=== PATIENT | male | born 1980 | race Caucasian/White ===

== ENCOUNTER 2018-05-25 02:07 | Inpatient (IN) | payer SELFPAY ==
[2018-05-25] VITALS (20 sets, daily range): BP systolic 91–132; BP diastolic 54–100
[~2018-05-25] VITALS: Ht 175.3 cm; Wt 118.2 kg
[~2018-05-25 02:07] MED LIST: AMLODIPINE BESY10 MG PO; ASPIR 8181 MG PO; CEFTRIAXON2 GM/50 ML IVP; CIPRO500 MG PO; DOXYCYCLINE HY100 M2 IV; DOXYCYCLINE HY100 MG PO; FUROSEMIDE40 MG PO; LASIX20 MG PO; LISINOPRIL10 MG PO; LISINOPRIL20 MG PO
[2018-05-25 03:12] LABS: AMPHETAMINES SCREEN,URINE NEGATIVE (NEGATIVE); BENZODIAZEPINES SCREEN,URINE NEGATIVE (NEGATIVE); PHENCYCLIDINE SCREEN,URINE NEGATIVE (NEGATIVE)
--- NOTE | 2018-05-25 03:13 | Diagnostic Imaging Report ---
CHEST 2 VIEWS, Technique: CHEST 2 VIEWS Comparison: None Clinical history: Cough DISCUSSION: Cardiomediastinal silhouette within normal limits status post median sternotomy. No consolidation or edema. No effusion or pneumothorax. IMPRESSION: No acute abnormality Signed by: Dr Beata Khan MD on 05/25/2018 3:10 AM
[2018-05-25 03:25] LABS: ALANINE AMINOTRANSFERASE 111 IU/L (0-55); ALBUMIN 4.6 g/dL (3.5-5.0); ALBUMIN/GLOBULIN RATIO 1.2 (0.8-2.0); ALKALINE PHOSPHATASE 153 IU/L (40-150); ANION GAP 24.8 mmol/L (8-16); BLOOD UREA NITROGEN 20 mg/dL (7-26); BUN/CREATININE RATIO 10 (6-25); CALCIUM 10.6 mg/dL (8.4-10.2); CARBON DIOXIDE 20 mmol/L (22-29); CHLORIDE 88 mmol/L (98-107); CREATININE, SERUM 1.97 mg/dL (0.72-1.25); EST GLOMERULAR FILTRATION RATE 39 ML/MIN (60-); POTASSIUM 5.8 mmol/L (3.5-5.1); SODIUM 127 mmol/L (136-145)
[2018-05-25 03:25] LABS: CLARITY,URINE CLEAR (CLEAR); COLOR,URINE YELLOW (YELLOW); KETONES,URINE TRACE (NEGATIVE); LEUKOCYTE ESTERASE ,URINE NEGATIVE (NEGATIVE); NITRITE,URINE NEGATIVE (NEGATIVE); PROTEIN,URINE DIPSTICK NEGATIVE (NEGATIVE)
[2018-05-25 03:26] LABS: BILIRUBIN,URINE NEGATIVE (NEGATIVE); URINE UROBILINOGEN 0.2 mg/dL (0.2 - 1)
[2018-05-25 03:31] LABS: GLUCOSE > 800 mg/dL (74-118)
[2018-05-25 03:42] LABS: HEMATOCRIT 48.4 % (38.2-49.6); HEMOGLOBIN 17.9 g/dL (14.0-18.0); MEAN CORPUSCULAR HEMOGLOBIN 32.3 pg (28-32); MEAN CORPUSCULAR VOLUME 87.4 fL (81-99); PLATELET COUNT 171 x10e3/uL (140-360); RED BLOOD COUNT 5.54 x10e6/uL (4.3-5.7); RED CELL DISTRIBUTION WIDTH 38.3 % (11.7-14.4)
[2018-05-25 03:43] LABS: BASOPHILS % 0.4 % (0.0-1.0); EOSINOPHILS % 0.3 % (0.0-6.0); LYMPHOCYTES % 12.2 % (18.0-39.1); MONOCYTES % 7.7 % (4.4-11.3); NEUTROPHILS # (AUTO) 8.7 (2.1-6.9); NEUTROPHILS % 79.1 % (38.7-80.0)
[2018-05-25 03:44] LABS: LYMPHOCYTES # (AUTO) 1.3 (1.0-3.2); MONOCYTES # (AUTO) 0.9 (0.2-0.8)
[2018-05-25] MEDS ORDERED: DEXTROSE 5%/0.45% SOD CHL 1,000 ML IV SCH (03:46)
[2018-05-25] MEDS ORDERED: METOPROLOL SUCC25 MG PO (03:53)
[2018-05-25] MEDS ORDERED: VASOTEC10 MG PO (03:53)
[2018-05-25] MEDS ORDERED: ONDANSETRON HCL INJ 2MG/ML 2ML 2 MG/ML VIAL IV PRN (04:00)
[2018-05-25] MEDS ORDERED: MAGNESIUM SULF 1GRAM/DEXTROSE 100 ML IV PRN (04:00)
[2018-05-25] MEDS ORDERED: POTASSIUM CHLORIDE 20MEQ/100ML 200 ML IV PRN (04:00)
[2018-05-25] MEDS ORDERED: INSULIN REGULAR, HUMAN 3ML VL 1 UNIT in SODIUM CHLORIDE 0.9% 100 ML IV SCH ×2 (04:00)
[2018-05-25] MEDS ORDERED: INSULIN DETEMIR 100 UNIT/ML PEN SQ PRN (04:00)
--- OUTSIDE RECORDS SUMMARY | 2018-05-25 04:00 | XMS REPORT ---
Author Author [facility] Address Unknown Phone Unavailable Care Team Providers Care Civil Designer Name Role Phone Herminio PEDERSON Unavailable Unavailable Problems This patient has no known problems. Allergies, Adverse Reactions, Alerts This patient has no known allergies or adverse reactions. Medications This patient has no known medications. Results Test Description Test Time Test Comments Text Results Atomic Results Result Comments CHEST 2 VIEWS 2018-05-25 03:09:00 [place] [id number] Patient Name: JASE RAMIRES III MR #: [id number] : 1980 Age/Sex: 37/M Req #: [id number] Adm Physician: Ordered by: RAINE PEDERSON MD Report #: [id number] Location: ER Room/Bed: Procedure: [id number] DX/CHEST 2 VIEWS Exam Date: 05/25/18 Exam Time: 0300 REPORT STATUS: Signed CHEST 2 VIEWS, Technique: CHEST 2 VIEWS Comparison: None Clinical history: Cough DISCUSSION: Cardiomediastinal silhouette within normal limits status post median sternotomy. No consolidation or edema. No effusion or pneumothorax. IMPRESSION: No acute abnormality Signed by: Dr Kyle Khan MD on 05/25/2018 3:10 AM Dictated By: KYLE KHAN MD 9 Transcribed By: KEIKO on 05/25/18309 COPY TO: RAINE PEDERSON MD
[2018-05-25 04:02] LABS: BACTERIA,URINE RARE /HPF; EPITHELIAL CELLS,URINE RARE /LPF; RBC,URINE 0-5 /HPF (0-5); WBC,URINE (MAN) 0-5 /HPF (0-5)
[2018-05-25 04:12] LABS: CREATINE KINASE 190 IU/L (30-200)
[2018-05-25] MEDS ORDERED: INSULIN REGULAR, HUMAN 100 UNIT/1 ML 3ML VIAL ONE (04:13)
[2018-05-25] MEDS ORDERED: SODIUM CHLORIDE 0.9% 100 ML ONE (04:13)
[2018-05-25] MEDS: SODIUM CHLORIDE 0.9% 1000ML 1,000 ML IV SCH ×3 (04:18→13:27)
[2018-05-25 08:19] LABS: ANION GAP 17.1 mmol/L (8-16); CREATININE, SERUM 1.47 mg/dL (0.72-1.25); MAGNESIUM 2.5 MG/DL (1.3-2.1); POTASSIUM 4.1 mmol/L (3.5-5.1)
[2018-05-25 12:43] LABS: BLOOD UREA NITROGEN 16 mg/dL (7-26); BUN/CREATININE RATIO 13 (6-25); CALCIUM 9.1 mg/dL (8.4-10.2); CARBON DIOXIDE 21 mmol/L (22-29); CHLORIDE 101 mmol/L (98-107); EST GLOMERULAR FILTRATION RATE > 60 ML/MIN (60-); GLUCOSE 351 mg/dL (74-118); MAGNESIUM 2.1 MG/DL (1.3-2.1); SODIUM 133 mmol/L (136-145)
[2018-05-25] MEDS: FUROSEMIDE 40 MG TAB PO SCH (13:27)
[2018-05-25] MEDS ORDERED: INSULIN REGULAR, HUMAN 3ML VL 300 UNIT in SODIUM CHLORIDE 0.45% 100 ML 300 ML IV SCH ×4 (13:39)
[2018-05-25] MEDS ORDERED: DEXTROSE 50% SYRINGE 50 ML IV PRN ×2 (13:45)
[2018-05-25] MEDS ORDERED: INSULIN REGULAR, HUMAN 3ML VL 100 UNIT in SODIUM CHLORIDE 0.45% 100 ML 100 ML IV SCH ×2 (14:00)
[2018-05-25 14:19] LABS: FREE T4 (FREE THYROXINE) 1.4 ng/dL (0.9-1.8); THYROID STIMULATING HORMONE 1.329 uIU/mL (0.350-4.940)
[2018-05-25] MEDS: DEXTROSE 5%/0.45% SOD CHL 1,000 ML IV SCH ×2 (15:30→21:37)
--- NOTE | 2018-05-25 16:06 | Consultation ---
DATE OF CONSULTATION: May 25, 2018 ENDOCRINE CONSULTATION This is a patient of Dr. Austin. Thank you very much for referring this patient. This is a 37-year-old gentleman who is referred to me for evaluation of new-onset diabetes and diabetic ketoacidosis. According to the patient, he was doing relatively alright until a couple of weeks back when he started having severe polyuria, polydipsia, dryness of mouth and started having some nausea and vomiting. He has lost a significant amount of weight. He reported to the emergency room, and his blood sugar was found to be more than 800. His anion gap was 24.8. Potassium was 5.8. BUN and creatinine were elevated as well. Patient has a significant history of aortic valve replacement in the past. He also has history of congestive cardiac failure. Patient does have strong family history of diabetes mellitus. PHYSICAL EXAMINATION GENERAL: The patient is alert, awake, a little bit apprehensive. He is moderately overweight. VITALS: His heart rate is around 79. Blood pressure is 123/87. CHEST: Bilateral vesicular breathing. He has mild bronchospasm. CARDIAC: Has 1st and 2nd heart sounds. He has a long systolic murmur and a click. He has tenderness in the epigastric area and mild evidence of sensory neuropathy. CLINICAL IMPRESSION 1. Diabetes mellitus, type 2. 2. Diabetic ketoacidosis, new onset. 3. History of aortic valve replacement. 4. Congestive cardiac failure. PLAN: The plan at this time is to start him on IV fluids and insulin drip. Monitor his blood sugars closely. Will also do a hemoglobin A1c and thyroid function test. Thanks again for referring this patient. I will be following this patient with you. Job#: [id number] HERI PARNELL
[2018-05-25 16:31] LABS: ANION GAP 12.8 mmol/L (8-16); BLOOD UREA NITROGEN 15 mg/dL (7-26); BUN/CREATININE RATIO 13 (6-25); CALCIUM 8.9 mg/dL (8.4-10.2); CARBON DIOXIDE 23 mmol/L (22-29); CHLORIDE 103 mmol/L (98-107); CREATININE, SERUM 1.18 mg/dL (0.72-1.25); EST GLOMERULAR FILTRATION RATE > 60 ML/MIN (60-); GLUCOSE 256 mg/dL (74-118); MAGNESIUM 1.9 MG/DL (1.3-2.1); POTASSIUM 3.8 mmol/L (3.5-5.1); SODIUM 135 mmol/L (136-145)
[2018-05-25] MEDS: ENALAPRIL MALEATE 10 MG TAB PO SCH (17:30)
--- NOTE | 2018-05-25 18:00 | History and Physical ---
HISTORY OF PRESENT ILLNESS: Patient is a 37-year-old male who has a past medical history positive for aortic valve replacement, history of hypertension, history of congestive heart failure, who came to the hospital complaining of nausea, not feeling well, and when he checked his blood sugar it was more than 800. He was found to have diabetic ketoacidosis, started on insulin drip. He is feeling better right now. REVIEW OF SYSTEMS: CARDIOVASCULAR: No chest pain, no palpitation. RESPIRATORY: No shortness of breath. No cough. GASTROINTESTINAL: He had nausea but no vomiting, no diarrhea. GENITOURINARY: No frequency, no dysuria. ALLERGIES: HE IS NOT ALLERGIC TO ANY MEDICATION. SOCIAL HISTORY: He denies alcohol abuse or tobacco abuse. PAST MEDICAL HISTORY: Aortic stenosis status post aortic valve replacement. Hypertension. Also he has got a history of congestive heart failure. PHYSICAL EXAMINATION: VITAL SIGNS: Blood pressure 123/81, temperature 98.1, heart rate 76 per minute, respiratory rate 14 per minute, oxygen saturation 99%. On the blood work we have a BMP: Sodium 135, potassium 3.8, chloride 103, CO2 23, BUN 15, creatinine 1.18, glucose 256. On the CBC: White blood count 11, hemoglobin 17.9, hematocrit 48.4, platelet count 171,000. AST 22, ALT 111, total bilirubin 1.5, and alkaline phosphatase 153. FINAL IMPRESSION: 1. Diabetic ketoacidosis. 2. Aortic stenosis status post aortic valve replacement. 3. Hypertension. 4. Chronic history of congestive heart failure. 5. Obesity. PLAN OF TREATMENT: We are going to continue insulin drip. Continue BMP q.4. hours. Continue with the insulin drip protocol. Continue enalapril 10 mg twice a day. Continue with Levemir 15 units at bedtime. Metoprolol 25 mg daily. Aspirin 81 mg daily. Furosemide 80 mg twice a day, which we are going to place on hold. Continue D5 normal saline at [address] Ibanez has already been consulted for the endocrinology and Dr. Rojas for cardiology. An echocardiogram has been ordered. Job#: [id number] EV
[2018-05-25] MEDS: ACETAMINOPHEN 325 MG TAB PO PRN (19:15)
[2018-05-25 20:53] LABS: ANION GAP 14.8 mmol/L (8-16); BLOOD UREA NITROGEN 14 mg/dL (7-26); BUN/CREATININE RATIO 11 (6-25); CALCIUM 8.9 mg/dL (8.4-10.2); CARBON DIOXIDE 22 mmol/L (22-29); CHLORIDE 99 mmol/L (98-107); CREATININE, SERUM 1.28 mg/dL (0.72-1.25); EST GLOMERULAR FILTRATION RATE > 60 ML/MIN (60-); MAGNESIUM 1.7 MG/DL (1.3-2.1); POTASSIUM 3.8 mmol/L (3.5-5.1); SODIUM 132 mmol/L (136-145)
[2018-05-25 20:56] LABS: GLUCOSE 420 mg/dL (74-118)
[2018-05-25] MEDS ORDERED: INSULIN DETEMIR 100 UNIT/ML PEN SQ SCH (21:00)
[2018-05-26] VITALS (17 sets, daily range): BP systolic 92–127; BP diastolic 52–91
[2018-05-26] MEDS: FUROSEMIDE 40 MG TAB PO SCH ×2 (00:18→08:02)
[2018-05-26 05:12] LABS: ANION GAP 13.1 mmol/L (8-16); BLOOD UREA NITROGEN 10 mg/dL (7-26); BUN/CREATININE RATIO 9 (6-25); CALCIUM 8.3 mg/dL (8.4-10.2); CARBON DIOXIDE 22 mmol/L (22-29); CHLORIDE 99 mmol/L (98-107); CREATININE, SERUM 1.08 mg/dL (0.72-1.25); EST GLOMERULAR FILTRATION RATE > 60 ML/MIN (60-); GLUCOSE 289 mg/dL (74-118); POTASSIUM 3.1 mmol/L (3.5-5.1); SODIUM 131 mmol/L (136-145)
[2018-05-26] MEDS: DEXTROSE 5%/0.45% SOD CHL 1,000 ML IV SCH ×2 (05:26→13:02)
[2018-05-26] MEDS: ACETAMINOPHEN 325 MG TAB PO PRN (05:26)
[2018-05-26] MEDS: ASPIRIN 81 MG CHEW TAB PO SCH (08:01)
[2018-05-26] MEDS: ENALAPRIL MALEATE 10 MG TAB PO SCH ×2 (08:02→17:00)
[2018-05-26] MEDS: METOPROLOL SUCCINATE 25 MG TAB XL PO SCH (08:02)
[2018-05-26] MEDS ORDERED: POTASSIUM CHLORIDE 20MEQ/100ML 100 ML IV STA (10:42)
--- NOTE | 2018-05-26 13:57 | Consultation ---
DATE OF CONSULTATION: May 26, 2018 CARDIAC CONSULTATION REASON FOR CONSULTATION: Evaluate cardiac status. HISTORY: A 37-year-old gentleman admitted to this institution with diabetic ketoacidosis, blood sugar of 800 and managed with IV fluids and rescue therapy. This is a new diagnosis for him. For the last few weeks or so, he has been having polyuria and polydipsia. His blood sugar was at 800. The patient is in the intensive care unit having diabetic ketoacidosis protocol. 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 This was complicated by severe AI. Patient apparently was a little bit late in changing his valve. He continued to have congestive heart failure with left ventricular dysfunction. He is followed at [facility] every 3 months. He is maintained on high dose of Lasix 80 mg twice a day and Vasotec 10 mg twice a day. When they tried to decrease his Lasix, "I swelled up." Patient denied having any recent fever or any recent dental workup. He does not use any IV drugs or any drugs. He used that many years ago, but he is clean for several years. He does not smoke and does not drink now. HOME MEDICATIONS 1. Aspirin 81 mg a day. 2. Vasotec 10 mg twice a day. 3. Lasix 80 mg twice a day. 4. Toprol-XL 25 mg a day. ALLERGIES: NONE. PAST MEDICAL HISTORY 1. Past history of drug abuse many years ago. 2. Obesity. 3. Aortic valve endocarditis complicated by severe aortic regurgitation and congestive heart failure. Followed regularly at [facility] every 3 months. FAMILY HISTORY: No family history of premature coronary artery disease. PHYSICAL EXAMINATION VITALS: Height of 5 feet 9 inches, weight of 248 pounds, blood pressure 100/70, heart rate of 80, respiratory rate of 18, afebrile. HEENT: Pupils are reactive. NECK: No elevation of jugular venous pulsation. CHEST: Few crackles. HEART: Prior sternotomy scar is noted. Normal 1st and 2nd heart sounds with soft ejection systolic murmur. No valve click. ABDOMEN: Soft. No organomegaly. Obese. EXTREMITIES: No cyanosis. No clubbing. No edema. SKIN: Several tattoos and few skin lesions. NEUROLOGIC: Awake, alert and oriented. LAB DATA: Admission blood sugar was 800. Currently, is controlled with IV insulin. Patient was given rescue IV fluids. Most recent BUN of , creatinine of 1.1, bicarb of 22, potassium is 3.1. White blood cell count of 11,000, hemoglobin 17.9, hematocrit 48%, and platelet count of 171,000. Chest x-ray showed sternotomy with no volume overload. TSH of 1.4. IMPRESSION AND PLAN 1. Recently diagnosed diabetes. 2. Patient admitted with diabetic ketoacidosis. 3. History of endocarditis: Status post with tissue valve aortic valve replacement in 2016 complicated by chronic congestive heart failure. 4. Obesity. Cardiac ruggiero, will pay attention to the patient's volume status. He is on appropriate medications. Will follow his volume status carefully. Blood cultures to be done. Patient will be observed with you. I would like to thank you for your kind referral. Job#: [id number] ANTHONY
[2018-05-26] MEDS ORDERED: INSULIN LISPRO 100 UNIT/1 ML 3ML VIAL SQ SCH (16:30)
--- NOTE | 2018-05-26 16:42 | Progress Note ---
DATE: INTERNAL MEDICINE PROGRESS NOTE SUBJECTIVE: Patient is doing better. PHYSICAL EXAMINATION VITALS: Blood pressure 114/91, temperature is 98.2, heart rate 99 per minute, respiratory rate 16 per minute, oxygen saturation 100%. HEART: Regular. LUNGS: Clear. On the BMP, sodium 131, potassium 3.1, chloride 99, CO2 22, BUN 10, creatinine 1.08, glucose 289. On the CBC, white blood count 11, hemoglobin 17.9, hematocrit 48.4, and platelet count 171,000. AST 22, ALT 111, total bilirubin 1.5, alkaline phos 153. FINAL IMPRESSION 1. Diabetic ketoacidosis. 2. Acute renal failure. 3. Hypokalemia. 4. Hyponatremia secondary to hypoglycemia. PLAN: We are going to continue with the current insulin drip. We are going to wean down insulin drip as the blood sugar improves. Potassium has been replaced. Continue monitoring the blood sugar q.1 h. Continue furosemide 80 mg twice a day. Levemir 30 units at bedtime. Metoprolol 25 mg daily. Continue Humalog 15 units before meals. Aspirin 81 mg daily. as needed for blood sugar less than 60. Enalapril 10 mg twice a day. Tylenol 650 mg q.4 h as needed. The ejection fraction on the echocardiogram is 40% to 45%. There is no pericardial effusion. No evidence of any severe valvular abnormality. He has an porcine aortic valve replacement. Dr. Rojas is on the case from cardiology. Dr. Ibanez for endocrinology. Continue diabetic diet. Diabetic education. Job#: [id number] ANTHONY
[2018-05-26] MEDS: INSULIN LISPRO 100 UNIT/1 ML 3ML VIAL SQ SCH ×2 (16:50→20:40)
[2018-05-26] MEDS ORDERED: INSULIN DETEMIR 100 UNIT/ML PEN SQ SCH ×2 (21:00)
[2018-05-26] MEDS ORDERED: INSULIN GLARGINE 100 UNITS/ML ML SC SCH (21:15)
[2018-05-27] MEDS: FUROSEMIDE 40 MG TAB PO SCH ×2 (00:32→12:41)
[2018-05-27 01:25] VITALS: BP 137/76
[2018-05-27 06:43] VITALS: BP 120/67
[2018-05-27] MEDS ORDERED: INSULIN GLARGINE 100 UNITS/ML ML SC SCH (07:30)
[2018-05-27] MEDS: INSULIN DETEMIR 100 UNIT/ML PEN SQ SCH (07:30)
[2018-05-27] MEDS: INSULIN LISPRO 100 UNIT/1 ML 3ML VIAL SQ SCH ×7 (07:30→21:18)
[2018-05-27 07:58] VITALS: BP 122/71
[2018-05-27] MEDS: METOPROLOL SUCCINATE 25 MG TAB XL PO SCH (09:00)
[2018-05-27] MEDS: ASPIRIN 81 MG CHEW TAB PO SCH (09:17)
[2018-05-27] MEDS: ENALAPRIL MALEATE 10 MG TAB PO SCH ×2 (09:20→17:55)
[2018-05-27 11:56] VITALS: BP 119/81
[2018-05-27 15:53] VITALS: BP 132/69
--- NOTE | 2018-05-27 17:19 | Progress Note ---
DATE: INTERNAL MEDICINE PROGRESS NOTE Patient is asymptomatic right now. Diabetes teaching has been done on him to be able to monitor blood sugar and understand the diabetic diet. Hemoglobin A1c was in the 11 range. That means that this patient has at least 3 months of diabetes. PHYSICAL EXAMINATION VITALS: Blood pressure 132/69, temperature 97.6, heart rate 89 per minute, respiratory rate 20 per minute, oxygen saturation 98%. BLOOD WORK: We have BMP with sodium 131, potassium 3.1, chloride 99, CO2 22, BUN 10, creatinine 1.08, glucose 299. On the CBC, white blood count 11,000, hemoglobin 17.9, hematocrit 48.4, and platelet count 171,000. AST 22, ALT 411, total bilirubin 1.5, alkaline phosphatase 153. FINAL IMPRESSION 1. Uncontrolled diabetes mellitus, type 2. 2. Hyponatremia, most likely second to hyperglycemia. 3. Hypokalemia. 4. Elevated liver function tests. PLAN OF TREATMENT: Continue with the current insulin regimen with Levemir and Humalog. He is taking Levemir 45 units at bedtime and 15 units in the morning. Aspirin 81 mg daily. Enalapril 10 mg twice a day. Furosemide 80 mg twice a day. Continue monitoring blood sugar a.c. and at night. He is also having Humalog 25 units for his meal time. Metoprolol 25 mg daily. Patient does have a history also for congestive heart failure. So, we are going to continue with the current insulin regime to try to obtain a blood sugar between 80-120. Optimize the insulin regimen until we get at goal. Patient will continue with the medication regimen also for congestive heart failure. He had aortic valve replacement with a porcine valve. Job#: [id number] ANTHONY
[2018-05-27 18:36] LABS: FERRITIN 568.07 ng/mL (21.81-274.66)
[2018-05-27 20:18] VITALS: BP 115/76
[2018-05-27] MEDS ORDERED: INSULIN DETEMIR 100 UNIT/ML PEN SQ SCH (21:00)
[2018-05-28] VITALS (7 sets, daily range): BP systolic 105–137; BP diastolic 67–96
[2018-05-28] MEDS: FUROSEMIDE 40 MG TAB PO SCH ×3 (00:23→20:17)
[2018-05-28 06:03] LABS: BASOPHILS % 0.6 % (0.0-1.0); EOSINOPHILS # (AUTO) 0.2 (0.0-0.4); EOSINOPHILS % 2.4 % (0.0-6.0); HEMATOCRIT 41.5 % (38.2-49.6); HEMOGLOBIN 14.7 g/dL (14.0-18.0); LYMPHOCYTES # (AUTO) 2.2 (1.0-3.2); LYMPHOCYTES % 31.8 % (18.0-39.1); MEAN CORPUSCULAR HEMOGLOBIN 31.4 pg (28-32); MEAN CORPUSCULAR HGB CONC 35.4 g/dL (31-35); MEAN CORPUSCULAR VOLUME 88.7 fL (81-99); MONOCYTES # (AUTO) 0.8 (0.2-0.8); MONOCYTES % 11.6 % (4.4-11.3); NEUTROPHILS # (AUTO) 3.7 (2.1-6.9); NEUTROPHILS % 52.9 % (38.7-80.0); PLATELET COUNT 152 x10e3/uL (140-360); RED BLOOD COUNT 4.68 x10e6/uL (4.3-5.7); RED CELL DISTRIBUTION WIDTH 12.3 % (11.7-14.4)
[2018-05-28 06:34] LABS: ALANINE AMINOTRANSFERASE 163 IU/L (0-55); ALBUMIN 3.3 g/dL (3.5-5.0); ALKALINE PHOSPHATASE 88 IU/L (40-150); ANION GAP 14.7 mmol/L (8-16); BLOOD UREA NITROGEN 14 mg/dL (7-26); BUN/CREATININE RATIO 11 (6-25); CARBON DIOXIDE 24 mmol/L (22-29); CHLORIDE 99 mmol/L (98-107); CREATININE, SERUM 1.24 mg/dL (0.72-1.25); EST GLOMERULAR FILTRATION RATE > 60 ML/MIN (60-); GLUCOSE 381 mg/dL (74-118); POTASSIUM 3.7 mmol/L (3.5-5.1); SODIUM 134 mmol/L (136-145)
[2018-05-28] MEDS: INSULIN DETEMIR 100 UNIT/ML PEN SQ SCH ×2 (08:10→21:29)
[2018-05-28] MEDS: INSULIN LISPRO 100 UNIT/1 ML 3ML VIAL SQ SCH ×7 (08:10→21:29)
[2018-05-28] MEDS: ASPIRIN 81 MG CHEW TAB PO SCH (09:14)
[2018-05-28] MEDS: METOPROLOL SUCCINATE 25 MG TAB XL PO SCH (09:14)
[2018-05-28] MEDS: ENALAPRIL MALEATE 10 MG TAB PO SCH ×2 (09:15→16:22)
--- NOTE | 2018-05-28 11:50 | Diagnostic Imaging Report ---
EXAMINATION: Right upper quadrant ultrasound CLINICAL INDICATION: Elevated liver function test COMPARISON: DISCUSSION: Transverse and longitudinal images of the right upper quadrant were obtained. The liver is normal in size measuring 14.1centimeters in length in the right midclavicular line and shows increased echogenicity. No focal masses are seen in the liver. There is no intrahepatic biliary dilatation. The common bile duct is normal in caliber and measures 0.3 cm. The main portal vein is normal in caliber and measures 1.1 cm with normal hepatopetal flow. None The gallbladder is contracted in appearance without stones, wall thickening or pericholecystic fluid. The sonographic Hernandez's sign is negative. Limited evaluation of the pancreas. The right kidney measures 10.6 centimeters in length. There is normal renal cortical echogenicity and no hydronephrosis, mass or shadowing calculi. The visualized portions of the great vessels are normal. No free fluid is seen. IMPRESSION: Increased hepatic echogenicity most commonly due to hepatic steatosis or other chronic inflammatory condition Signed by: Dr. Babar Montes M.D. on 05/28/2018 11:47 AM
[2018-05-28] MEDS ORDERED: INSULIN LISPRO 100 UNIT/1 ML 3ML VIAL SQ SCH (16:30)
--- NOTE | 2018-05-28 16:47 | Progress Note ---
DATE: INTERNAL MEDICINE PROGRESS NOTE SUBJECTIVE: Blood sugar is still high. PHYSICAL EXAM: VITAL SIGNS: Blood pressure 105/67, temperature 95.3, heart rate 86 per minute, respiratory rate 16 per minute, oxygen saturation 97%. On the BMP: Sodium 134, potassium 3.7, chloride 99, CO2 24, BUN 14, creatinine 1.24, glucose is 381. On the CBC: White blood count 6.98, hemoglobin 14.7, hematocrit 41.5, platelet count 152,000. AST 60, ALT 163, total bilirubin is 0.8, and alkaline phosphatase 88. FINAL IMPRESSION: 1. Uncontrolled diabetes mellitus type 2 with some evidence of renal insufficiency. 2. Hyponatremia which is secondary to hyperglycemia. 3. Chronic systolic congestive heart failure. 4. Aortic stenosis. 5. Elevated liver function tests. PLAN OF TREATMENT: We are going to continue with the insulin regimen, which has been increased by Dr. Ibanez, endocrinology, for Levemir 60 units at bedtime and 15 units in the morning, Humalog 32 units before each meal. Tylenol 650 mg q.4 hours as needed for pain or fever. Enalapril 10 mg twice a day. Furosemide 80 mg twice a day. Metoprolol 25 mg daily. Patient has received education for diabetic diet. I told the patient he has to continue the diet and lose some weight in order to control his diabetes better. As I said, the workup for elevated LFTs is in progress. So far there is evidence of fatty liver, which most likely is the reason why he had the elevated LFTs. We are going to see if we can start Victoza 0.8 mg subcutaneously once a day in order to improve the glucose control. Job#: [id number] EV
[2018-05-28] MEDS ORDERED: INSULIN DETEMIR 100 UNIT/ML PEN SQ SCH (21:00)
[2018-05-29] VITALS (7 sets, daily range): BP systolic 93–141; BP diastolic 56–90
[2018-05-29 06:10] LABS: ALANINE AMINOTRANSFERASE 161 IU/L (0-55); ALBUMIN 3.3 g/dL (3.5-5.0); ALKALINE PHOSPHATASE 83 IU/L (40-150); ANION GAP 13.6 mmol/L (8-16); BLOOD UREA NITROGEN 14 mg/dL (7-26); BUN/CREATININE RATIO 12 (6-25); CALCIUM 9.1 mg/dL (8.4-10.2); CARBON DIOXIDE 26 mmol/L (22-29); CHLORIDE 99 mmol/L (98-107); CREATININE, SERUM 1.17 mg/dL (0.72-1.25); EST GLOMERULAR FILTRATION RATE > 60 ML/MIN (60-); GLUCOSE 234 mg/dL (74-118); POTASSIUM 3.6 mmol/L (3.5-5.1); SODIUM 135 mmol/L (136-145)
[2018-05-29] MEDS: FUROSEMIDE 40 MG TAB PO SCH ×2 (07:00→18:31)
[2018-05-29] MEDS: INSULIN DETEMIR 100 UNIT/ML PEN SQ SCH ×2 (08:06→22:35)
[2018-05-29] MEDS: INSULIN LISPRO 100 UNIT/1 ML 3ML VIAL SQ SCH ×7 (08:06→21:00)
[2018-05-29] MEDS: ENALAPRIL MALEATE 10 MG TAB PO SCH ×2 (08:35→16:31)
[2018-05-29] MEDS: ASPIRIN 81 MG CHEW TAB PO SCH (09:29)
[2018-05-29] MEDS: PIOGLITAZONE HCL 15 MG TAB PO SCH (09:29)
[2018-05-29] MEDS: METOPROLOL SUCCINATE 25 MG TAB XL PO SCH (09:30)
[2018-05-30 00:10] VITALS: BP 122/54
[2018-05-30 04:20] VITALS: BP 120/58
[2018-05-30 05:56] LABS: BASOPHILS % 0.6 % (0.0-1.0); EOSINOPHILS # (AUTO) 0.2 (0.0-0.4); EOSINOPHILS % 2.7 % (0.0-6.0); HEMATOCRIT 40.9 % (38.2-49.6); HEMOGLOBIN 14.6 g/dL (14.0-18.0); LYMPHOCYTES # (AUTO) 2.4 (1.0-3.2); MEAN CORPUSCULAR HEMOGLOBIN 31.7 pg (28-32); MEAN CORPUSCULAR HGB CONC 35.7 g/dL (31-35); MEAN CORPUSCULAR VOLUME 88.7 fL (81-99); MONOCYTES # (AUTO) 0.8 (0.2-0.8); MONOCYTES % 12.4 % (4.4-11.3); NEUTROPHILS # (AUTO) 3.1 (2.1-6.9); NEUTROPHILS % 46.7 % (38.7-80.0); PLATELET COUNT 160 x10e3/uL (140-360); RED BLOOD COUNT 4.61 x10e6/uL (4.3-5.7)
[2018-05-30 06:19] LABS: ALANINE AMINOTRANSFERASE 180 IU/L (0-55); ALBUMIN 3.2 g/dL (3.5-5.0); ALBUMIN/GLOBULIN RATIO 0.9 (0.8-2.0); ALKALINE PHOSPHATASE 79 IU/L (40-150); ANION GAP 14.5 mmol/L (8-16); BLOOD UREA NITROGEN 14 mg/dL (7-26); BUN/CREATININE RATIO 12 (6-25); CALCIUM 9.1 mg/dL (8.4-10.2); CARBON DIOXIDE 26 mmol/L (22-29); CHLORIDE 99 mmol/L (98-107); CHOL/HDL RATIO 3.7 (3.9-4.7); CHOLESTEROL 163 MD/DL (0-199); CREATININE, SERUM 1.16 mg/dL (0.72-1.25); EST GLOMERULAR FILTRATION RATE > 60 ML/MIN (60-); GLUCOSE 221 mg/dL (74-118); HDL CHOLESTEROL 44 MG/DL (40-60); LDL CHOLESTEROL 96 MG/DL (60-130); POTASSIUM 3.5 mmol/L (3.5-5.1); SODIUM 136 mmol/L (136-145); TRIGLYCERIDES 115 MG/DL (0-149)
[2018-05-30 08:00] VITALS: BP 104/58
[2018-05-30 08:13] VITALS: BP 104/58
[2018-05-30] MEDS: ENALAPRIL MALEATE 10 MG TAB PO SCH (08:13)
[2018-05-30] MEDS: PIOGLITAZONE HCL 15 MG TAB PO SCH (08:13)
[2018-05-30] MEDS: FUROSEMIDE 40 MG TAB PO SCH (08:13)
[2018-05-30] MEDS: ASPIRIN 81 MG CHEW TAB PO SCH (08:13)
[2018-05-30] MEDS: INSULIN LISPRO 100 UNIT/1 ML 3ML VIAL SQ SCH ×4 (08:13→11:58)
[2018-05-30] MEDS: INSULIN DETEMIR 100 UNIT/ML PEN SQ SCH (08:13)
[2018-05-30] MEDS: METOPROLOL SUCCINATE 25 MG TAB XL PO SCH (08:13)
[2018-05-30 12:00] VITALS: BP 120/64
--- NOTE | 2018-05-30 14:33 | Discharge Summary ---
ADMITTING DIAGNOSES 1. Diabetic ketoacidosis. 2. History o aortic stenosis status post aortic valve replacement. 3. Hypertensive heart disease. 4. Congestive heart failure. 5. Obesity, body mass index 38. 6. Acute renal failure. DISCHARGE DIAGNOSES 1. Diabetic ketoacidosis, resolved. 2. Type 2 diabetes mellitus. 3. Chronic systolic congestive heart failure. 4. Hypertensive heart disease. 5. History of aortic valve replacement. 6. Obesity, body mass index 36. 7. Acute renal failure, resolved. 8. Fatty liver disease. HOSPITAL COURSE: This is a 37-year-old man who was initially admitted to [facility] with diagnosis of diabetic ketoacidosis. During this hospitalization, he had serial cardiac enzymes as well as electrocardiograms that did not reveal any evidence of acute myocardial ischemia or infarction. He also did not have any evidence of infection. On admission, patient's glucose level was greater than 800 mg. Patient stated on admission he had blurry vision. Patient states his blurry vision resolved during this hospitalization once his glucose levels became controlled. On admission, potassium was 5.8 with BUN and creatinine of 20 and 1.97 respectively. On the day of discharge, patient's BUN and creatinine was 14 and 1.16 respectively with potassium of 3.5. Patient was found to have a LDL cholesterol of 96 mg/dL during this hospitalization. Sugars improved to 115 mg/dL. Patient's TSH was of normal value at 1.329. Patient was seen by endocrinology during the hospitalization, namely Dr. Ibanez. During this hospitalization, patient was found to have hemoglobin A1c of 11.6%. Patient was started on Levemir and Humalog for glucose control. He was also started on old pioglitazone, namely Actos. Patient's hospitalization was unremarkable. During this hospitalization, he did receive diabetic education that included counseling with the [facility] staff nurse. The patient also was taught how to administer insulin therapy during this hospitalization. He was also taught how to use a glucometer. On discharge, his condition was stable. DISCHARGE MEDICATIONS 1. NPH insulin 32 units in the morning and 34 units at night. 2. Regular insulin 30 units subcutaneously t.i.d. with meals. 3. Potassium chloride 20 mEq daily. 4. Enalapril 5 mg b.i.d. 5. Furosemide 80 mg b.i.d. 6. Metoprolol succinate 25 mg daily. 7. Aspirin 81 mg daily. FOLLOWUP INSTRUCTIONS: Patient is instructed to follow up with Dr. Yuri Austin within 2 weeks. The patient was also instructed to follow up with his director of rooms within the next 3 weeks at [facility], [place], namely Dr. Rivera. GAGAN SCOTT MD Job#: [id number] ARUN cc: Nica FAYE DR., DR., M.D. MTDD
[2018-05-30] MEDS ORDERED: HUMULIN N100 UNITS/ SQ ×2 (15:05→15:06)
[2018-05-30] MEDS ORDERED: HUMULIN R100 UNIT/2 SQ (15:12)
[2018-05-30] MEDS ORDERED: POTASSIUM CHLO10 ME1 PO (15:13)
[2018-05-30 16:00] VITALS: BP 126/77
== END 2018-05-30 16:04 | disposition home or self-care (01) | DRG 638 ==
LOC: ER 02:07 → ERHOLD 03:57 → ICU 04:45 → MED/SURG2 05-26 21:45
PROVIDERS: ADMIT Internal Medicine; ATTEND Internal Medicine
DX: E11.10 Type 2 diabetes mellitus with ketoacidosis without coma (principal); N17.9 Acute kidney failure, unspecified; I50.22 Chronic systolic (congestive) heart failure; Z79.4 Long term (current) use of insulin; E86.0 Dehydration; I11.0 Hypertensive heart disease with heart failure; Z95.3 Presence of xenogenic heart valve; E87.5 Hyperkalemia; E87.6 Hypokalemia; K76.0 Fatty (change of) liver, not elsewhere classified; R53.81 Other malaise; Z28.21 Immunization not carried out because of patient refusal
CPT/HCPCS: 36415; 71046; 76705; 80048; 80053; 80061; 80307; 81001; 82390; 82550; 82553; 82728; 82947; 82948; 83036; 83540; 83735; 84439; 84443; 84484; 85025; 86255; 87040; 93005; 93306; 96372; 99284; J3480; J7030; J7050

== ENCOUNTER 2020-08-17 17:58 | Inpatient (IN) | payer MEDICARE ==
[~2020-08-17] VITALS: Ht 175.3 cm; Wt 113.4 kg
[~2020-08-17 17:58] MED LIST changes: +HUMULIN N100 UNITS/ SQ; +HUMULIN R100 UNIT/2 SQ; +METOPROLOL SUCC25 MG PO; +POTASSIUM CHLO10 ME1 PO; +VASOTEC10 MG PO
[2020-08-17] MEDS ORDERED: SODIUM CHLORIDE 0.9% 1000ML 1,000 ML IV STA ×2 (18:03→19:02)
[2020-08-17] MEDS ORDERED: ASPIRIN 81 MG CHEW TAB PO ONE (18:15)
[2020-08-17 18:20] LABS: BASOPHILS % 0.2 % (0.0-1.0); HEMATOCRIT 53.2 % (38.2-49.6); LYMPHOCYTES # (AUTO) 0.8 (1.0-3.2); LYMPHOCYTES % 5.1 % (18.0-39.1); MEAN CORPUSCULAR HEMOGLOBIN 32.5 pg (28-32); MEAN CORPUSCULAR HGB CONC 35.7 g/dL (31-35); MEAN CORPUSCULAR VOLUME 91.1 fL (81-99); MONOCYTES # (AUTO) 0.9 (0.2-0.8); MONOCYTES % 5.3 % (4.4-11.3); NEUTROPHILS # (AUTO) 14.5 (2.1-6.9); NEUTROPHILS % 88.9 % (38.7-80.0); PLATELET COUNT 176 x10e3/uL (140-360); RED BLOOD COUNT 5.84 x10e6/uL (4.3-5.7); RED CELL DISTRIBUTION WIDTH 12.5 % (11.7-14.4)
[2020-08-17 18:55] LABS: ALBUMIN 4.9 g/dL (3.5-5.0); ALBUMIN/GLOBULIN RATIO 1.1 (0.8-2.0); ANION GAP 31.4 mmol/L (8-16); CREATININE, SERUM 2.89 mg/dL (0.72-1.25)
[2020-08-17 18:58] LABS: POTASSIUM 6.4 mmol/L (3.5-5.1)
[2020-08-17] MEDS ORDERED: INSULIN REGULAR, HUMAN 100 UNIT/1 ML 3ML VIAL IV STA (19:05)
[2020-08-17] MEDS ORDERED: SODIUM CHLORIDE 0.9% 1000ML 2,000 ML ONE (19:07)
[2020-08-17] MEDS ORDERED: MAGNESIUM SULF 1GRAM/DEXTROSE 100 ML IV PRN (19:15)
[2020-08-17] MEDS ORDERED: MORPHINE SULFATE INJ 4 MG/ML INJ 1ML IV PRN (19:15)
[2020-08-17] MEDS ORDERED: POTASSIUM CHLORIDE 20MEQ/100ML 200 ML IV PRN (19:15)
[2020-08-17] MEDS: DEXTROSE 5%/0.45% SOD CHL 1,000 ML IV SCH (19:15)
[2020-08-17] MEDS ORDERED: ONDANSETRON HCL INJ 2MG/ML 2ML 2 MG/ML VIAL IV PRN (19:15)
[2020-08-17] MEDS ORDERED: SODIUM BICARBONATE 8.4% INJ 50 ML SYR IV STA (19:17)
[2020-08-17 19:22] LABS: ABG PCO2 26 mmHg (35-45); ABG PO2 94 mmHg (80-105); ABG TCO2 14
[2020-08-17 19:23] LABS: ABG HCO3 13 mmol/L (22-26)
[2020-08-17] MEDS ORDERED: CALCIUM GLUCONATE 10% INJ 4.65 MEQ in SODIUM CHLORIDE 0.9% 50ML 50 ML IV ONE (19:30)
[2020-08-17] MEDS ORDERED: FUROSEMIDE INJ 10 MG/ML 4 ML VIAL IV ONE (19:45)
[2020-08-17] MEDS: INSULIN REGULAR, HUMAN 3ML VL 100 UNIT in SODIUM CHLORIDE 0.9% 99 ML IV SCH ×2 (19:49)
[2020-08-17] MEDS ORDERED: ELIQUIS5 MG PO (19:53)
[2020-08-17] MEDS ORDERED: ATORVASTATIN CA40 MG PO (19:53)
[2020-08-17] MEDS ORDERED: FUROSEMIDE80 MG PO (19:53)
[2020-08-17] MEDS ORDERED: SPIRONOLACTONE25 MG PO (19:53)
[2020-08-17 19:54] LABS: CLARITY,URINE CLEAR (CLEAR); COLOR,URINE COLORLESS (YELLOW)
[2020-08-17 19:55] LABS: KETONES,URINE 2+ (NEGATIVE); LEUKOCYTE ESTERASE ,URINE NEGATIVE (NEGATIVE); NITRITE,URINE NEGATIVE (NEGATIVE); PROTEIN,URINE DIPSTICK NEGATIVE (NEGATIVE); URINE UROBILINOGEN 0.2 mg/dL (0.2 - 1)
[2020-08-17 20:06] LABS: BACTERIA,URINE RARE /HPF; EPITHELIAL CELLS,URINE RARE /LPF; RBC,URINE 0-5 /HPF (0-5); WBC,URINE (MAN) 0-5 /HPF (0-5)
[2020-08-17] MEDS: SODIUM CHLORIDE 0.9% 1000ML 1,000 ML IV SCH (20:58)
[2020-08-17 21:55] LABS: ANION GAP 26.3 mmol/L (8-16); CALCIUM 9.6 mg/dL (8.4-10.2); CREATININE, SERUM 2.51 mg/dL (0.72-1.25); POTASSIUM 3.3 mmol/L (3.5-5.1)
[2020-08-17] MEDS ORDERED: POTASSIUM CHLORIDE 20MEQ/100ML 100 ML ONE (22:27)
[2020-08-17] MEDS ORDERED: ACETAMINOPHEN 325 MG TAB PO PRN (23:00)
[2020-08-17] MEDS ORDERED: HYDRALAZINE HCL 20 MG/ML VIAL IV PRN ×2 (23:00)
[2020-08-17 23:19] VITALS: BP 130/89
[2020-08-17 23:25] VITALS: BP 130/89
[2020-08-18] VITALS (10 sets, daily range): BP systolic 110–139; BP diastolic 82–116
[2020-08-18 02:08] LABS: ANION GAP 23.1 mmol/L (8-16); CALCIUM 9.4 mg/dL (8.4-10.2); CREATININE, SERUM 2.08 mg/dL (0.72-1.25); MAGNESIUM 2.8 MG/DL (1.3-2.1); POTASSIUM 4.1 mmol/L (3.5-5.1)
[2020-08-18] MEDS: SODIUM CHLORIDE 0.9% 1000ML 1,000 ML IV SCH ×8 (02:25→23:15)
[2020-08-18] MEDS: INSULIN REGULAR, HUMAN 3ML VL 100 UNIT in SODIUM CHLORIDE 0.9% 99 ML IV SCH ×4 (04:09→15:22)
[2020-08-18] MEDS: DEXTROSE 5%/0.45% SOD CHL 1,000 ML IV SCH ×2 (05:15→15:15)
[2020-08-18 06:23] LABS: BASOPHILS # (AUTO) 0.1 (0.0-0.1); BASOPHILS % 0.5 % (0.0-1.0); EOSINOPHILS # (AUTO) 0.1 (0.0-0.4); EOSINOPHILS % 0.3 % (0.0-6.0); HEMOGLOBIN 19.2 g/dL (14.0-18.0); LYMPHOCYTES # (AUTO) 1.9 (1.0-3.2); LYMPHOCYTES % 11.5 % (18.0-39.1); MEAN CORPUSCULAR HEMOGLOBIN 32.4 pg (28-32); MEAN CORPUSCULAR HGB CONC 36.9 g/dL (31-35); MEAN CORPUSCULAR VOLUME 87.8 fL (81-99); MONOCYTES # (AUTO) 1.6 (0.2-0.8); MONOCYTES % 9.3 % (4.4-11.3); NEUTROPHILS # (AUTO) 13.1 (2.1-6.9); NEUTROPHILS % 77.9 % (38.7-80.0); PLATELET COUNT 155 x10e3/uL (140-360); RED BLOOD COUNT 5.92 x10e6/uL (4.3-5.7); RED CELL DISTRIBUTION WIDTH 12.1 % (11.7-14.4)
[2020-08-18 06:42] LABS: ALBUMIN 4.4 g/dL (3.5-5.0); ALBUMIN/GLOBULIN RATIO 1.1 (0.8-2.0); CALCIUM 9.5 mg/dL (8.4-10.2); CREATININE, SERUM 1.9 mg/dL (0.72-1.25)
[2020-08-18 07:04] LABS: CALCIUM 9.5 mg/dL (8.4-10.2); CREATININE, SERUM 1.88 mg/dL (0.72-1.25); MAGNESIUM 2.7 MG/DL (1.3-2.1)
[2020-08-18] MEDS: METOPROLOL SUCCINATE 25 MG TAB XL PO SCH (09:46)
[2020-08-18] MEDS: APIXABAN 5 MG TABLET PO SCH ×2 (09:46→17:45)
[2020-08-18 12:59] LABS: ANION GAP 13.8 mmol/L (8-16); CALCIUM 8.6 mg/dL (8.4-10.2); CREATININE, SERUM 1.58 mg/dL (0.72-1.25); MAGNESIUM 2.3 MG/DL (1.3-2.1); POTASSIUM 3.8 mmol/L (3.5-5.1)
[2020-08-18 15:15] LABS: ANION GAP 13.6 mmol/L (8-16); CALCIUM 8.3 mg/dL (8.4-10.2); CREATININE, SERUM 1.4 mg/dL (0.72-1.25); MAGNESIUM 2.1 MG/DL (1.3-2.1); POTASSIUM 3.6 mmol/L (3.5-5.1)
[2020-08-18] MEDS: ATORVASTATIN 20 MG TAB PO SCH (20:20)
[2020-08-18 20:43] LABS: ANION GAP 13.5 mmol/L (8-16); CALCIUM 8.1 mg/dL (8.4-10.2); CREATININE, SERUM 1.38 mg/dL (0.72-1.25); POTASSIUM 3.5 mmol/L (3.5-5.1)
[2020-08-18] MEDS ORDERED: SIMETHICONE 80 MG CHEW PO PRN (23:30)
[2020-08-18] MEDS ORDERED: SIMETHICONE 80 MG CHEW PO ONE (23:30)
[2020-08-19] VITALS (8 sets, daily range): BP systolic 96–127; BP diastolic 62–91
[2020-08-19] MEDS: DEXTROSE 5%/0.45% SOD CHL 1,000 ML IV SCH ×2 (00:32→07:56)
[2020-08-19] MEDS: INSULIN REGULAR, HUMAN 3ML VL 100 UNIT in SODIUM CHLORIDE 0.9% 99 ML IV SCH ×2 (00:40)
[2020-08-19 01:24] LABS: ANION GAP 13.1 mmol/L (8-16); BLOOD UREA NITROGEN 24 mg/dL (7-26); BUN/CREATININE RATIO 19 (6-25); CALCIUM 8.6 mg/dL (8.4-10.2); CARBON DIOXIDE 23 mmol/L (22-29); CHLORIDE 108 mmol/L (98-107); CREATININE, SERUM 1.26 mg/dL (0.72-1.25); EST GLOMERULAR FILTRATION RATE > 60 ML/MIN (60-); GLUCOSE 172 mg/dL (74-118); POTASSIUM 3.1 mmol/L (3.5-5.1); SODIUM 141 mmol/L (136-145)
[2020-08-19] MEDS: POTASSIUM CHLORIDE 20MEQ/100ML 100 ML IV PRN ×3 (01:46→13:15)
[2020-08-19] MEDS: SODIUM CHLORIDE 0.9% 1000ML 1,000 ML IV SCH ×4 (03:15→15:15)
[2020-08-19 05:38] LABS: BASOPHILS # (AUTO) 0.1 (0.0-0.1); BASOPHILS % 0.5 % (0.0-1.0); EOSINOPHILS # (AUTO) 0.3 (0.0-0.4); EOSINOPHILS % 2.5 % (0.0-6.0); HEMATOCRIT 42.4 % (38.2-49.6); HEMOGLOBIN 15.2 g/dL (14.0-18.0); LYMPHOCYTES # (AUTO) 2.8 (1.0-3.2); LYMPHOCYTES % 26.6 % (18.0-39.1); MEAN CORPUSCULAR HEMOGLOBIN 32.1 pg (28-32); MEAN CORPUSCULAR HGB CONC 35.8 g/dL (31-35); MEAN CORPUSCULAR VOLUME 89.6 fL (81-99); MONOCYTES % 9.3 % (4.4-11.3); NEUTROPHILS # (AUTO) 6.3 (2.1-6.9); NEUTROPHILS % 60.6 % (38.7-80.0); PLATELET COUNT 113 x10e3/uL (140-360); RED BLOOD COUNT 4.73 x10e6/uL (4.3-5.7)
[2020-08-19 05:58] LABS: ANION GAP 13.1 mmol/L (8-16); BLOOD UREA NITROGEN 20 mg/dL (7-26); BUN/CREATININE RATIO 18 (6-25); CARBON DIOXIDE 22 mmol/L (22-29); CHLORIDE 110 mmol/L (98-107); CREATININE, SERUM 1.12 mg/dL (0.72-1.25); EST GLOMERULAR FILTRATION RATE > 60 ML/MIN (60-); GLUCOSE 128 mg/dL (74-118); MAGNESIUM 1.9 MG/DL (1.3-2.1); POTASSIUM 3.1 mmol/L (3.5-5.1); SODIUM 142 mmol/L (136-145)
[2020-08-19] MEDS: PANTOPRAZOLE SOD 40 MG TABEC PO SCH (07:56)
[2020-08-19] MEDS: APIXABAN 5 MG TABLET PO SCH ×2 (08:50→16:02)
[2020-08-19] MEDS: METOPROLOL SUCCINATE 25 MG TAB XL PO SCH (08:59)
[2020-08-19 09:12] LABS: ANION GAP 12.2 mmol/L (8-16); BLOOD UREA NITROGEN 17 mg/dL (7-26); BUN/CREATININE RATIO 16 (6-25); CARBON DIOXIDE 17 mmol/L (22-29); CHLORIDE 113 mmol/L (98-107); CREATININE, SERUM 1.08 mg/dL (0.72-1.25); EST GLOMERULAR FILTRATION RATE > 60 ML/MIN (60-); GLUCOSE 100 mg/dL (74-118); MAGNESIUM 1.9 MG/DL (1.3-2.1); POTASSIUM 3.2 mmol/L (3.5-5.1); SODIUM 139 mmol/L (136-145)
[2020-08-19] MEDS ORDERED: DEXTROSE 50% SYRINGE 50 ML IV PRN ×2 (12:30→17:15)
[2020-08-19 12:51] LABS: ANION GAP 12.1 mmol/L (8-16); BLOOD UREA NITROGEN 16 mg/dL (7-26); BUN/CREATININE RATIO 15 (6-25); CALCIUM 7.8 mg/dL (8.4-10.2); CARBON DIOXIDE 21 mmol/L (22-29); CHLORIDE 108 mmol/L (98-107); CREATININE, SERUM 1.05 mg/dL (0.72-1.25); EST GLOMERULAR FILTRATION RATE > 60 ML/MIN (60-); GLUCOSE 190 mg/dL (74-118); MAGNESIUM 1.8 MG/DL (1.3-2.1); POTASSIUM 3.1 mmol/L (3.5-5.1); SODIUM 138 mmol/L (136-145)
[2020-08-19] MEDS ORDERED: INSULIN GLARGINE 100 UNITS/ML VIAL SQ ONE (13:00)
[2020-08-19] MEDS ORDERED: MAGNESIUM SULF 1GRAM/DEXTROSE 100 ML IV PRN (16:15)
[2020-08-19] MEDS ORDERED: INSULIN REGULAR, HUMAN 100 UNIT/1 ML 3ML VIAL SQ SCH (16:30)
[2020-08-19 18:03] LABS: FREE T4 (FREE THYROXINE) 1.17 ng/dL (0.8-1.8); THYROID STIMULATING HORMONE 0.754 uIU/mL (0.350-4.940)
[2020-08-19] MEDS: SODIUM CHLORIDE 0.45% 1,000 ML IV SCH (19:40)
[2020-08-19] MEDS ORDERED: INSULIN LISPRO 100 UNIT/1 ML 3ML VIAL SQ SCH (21:00)
[2020-08-19] MEDS ORDERED: INSULIN GLARGINE 100 UNITS/ML VIAL SQ SCH (21:00)
[2020-08-19] MEDS: INSULIN LISPRO 100 UNIT/1 ML 3ML VIAL SQ SCH (21:18)
[2020-08-19] MEDS: ATORVASTATIN 20 MG TAB PO SCH (21:36)
[2020-08-19 21:37] LABS: ANION GAP 15.9 mmol/L (8-16); BLOOD UREA NITROGEN 17 mg/dL (7-26); BUN/CREATININE RATIO 13 (6-25); CALCIUM 8.2 mg/dL (8.4-10.2); CARBON DIOXIDE 18 mmol/L (22-29); CHLORIDE 106 mmol/L (98-107); CREATININE, SERUM 1.32 mg/dL (0.72-1.25); EST GLOMERULAR FILTRATION RATE > 60 ML/MIN (60-); POTASSIUM 3.9 mmol/L (3.5-5.1); SODIUM 136 mmol/L (136-145)
[2020-08-19 22:12] LABS: GLUCOSE 445 mg/dL (74-118)
[2020-08-20] VITALS (8 sets, daily range): BP systolic 109–138; BP diastolic 75–99
[2020-08-20 08:05] LABS: CALCIUM IONIZED 1.2 mmol/L (1.09-1.30)
[2020-08-20 08:21] LABS: ANION GAP 14.6 mmol/L (8-16); BLOOD UREA NITROGEN 12 mg/dL (7-26); BUN/CREATININE RATIO 12 (6-25); CARBON DIOXIDE 19 mmol/L (22-29); CHLORIDE 108 mmol/L (98-107); CREATININE, SERUM 0.97 mg/dL (0.72-1.25); EST GLOMERULAR FILTRATION RATE > 60 ML/MIN (60-); GLUCOSE 280 mg/dL (74-118); MAGNESIUM 1.9 MG/DL (1.3-2.1); POTASSIUM 3.6 mmol/L (3.5-5.1); SODIUM 138 mmol/L (136-145)
[2020-08-20] MEDS: PANTOPRAZOLE SOD 40 MG TABEC PO SCH (09:04)
[2020-08-20] MEDS: METOPROLOL SUCCINATE 25 MG TAB XL PO SCH (09:04)
[2020-08-20] MEDS: APIXABAN 5 MG TABLET PO SCH ×2 (09:04→16:25)
[2020-08-20] MEDS: SODIUM CHLORIDE 0.45% 1,000 ML IV SCH ×2 (09:11→23:03)
[2020-08-20] MEDS: INSULIN LISPRO 100 UNIT/1 ML 3ML VIAL SQ SCH ×7 (09:45→20:35)
[2020-08-20] MEDS: ATORVASTATIN 20 MG TAB PO SCH (20:26)
[2020-08-20] MEDS ORDERED: INSULIN GLARGINE 100 UNITS/ML VIAL SQ SCH (21:00)
[2020-08-21] VITALS: BP 129/85
[2020-08-21 04:00] VITALS: BP 124/97
[2020-08-21 07:55] VITALS: BP 129/81
[2020-08-21 08:20] VITALS: BP 129/81
[2020-08-21] MEDS: PANTOPRAZOLE SOD 40 MG TABEC PO SCH (08:43)
[2020-08-21] MEDS: APIXABAN 5 MG TABLET PO SCH ×2 (08:43→16:43)
[2020-08-21] MEDS: METOPROLOL SUCCINATE 25 MG TAB XL PO SCH (08:44)
[2020-08-21] MEDS: ENALAPRIL MALEATE 10 MG TAB PO SCH ×2 (08:45→16:43)
[2020-08-21] MEDS: INSULIN LISPRO 100 UNIT/1 ML 3ML VIAL SQ SCH ×5 (08:50→16:44)
[2020-08-21 11:42] VITALS: BP 126/90
[2020-08-21] MEDS: SODIUM CHLORIDE 0.45% 1,000 ML IV SCH (13:33)
[2020-08-21] MEDS ORDERED: HUMALOG100 UNIT/3 SC (14:35)
[2020-08-21] MEDS ORDERED: LANTUS 3ML100 UNITS/ SC (14:35)
[2020-08-21 15:51] VITALS: BP 127/84
[2020-08-21] MEDS ORDERED: INSULIN LISPRO 100 UNIT/1 ML 3ML VIAL SQ SCH (16:30)
[2020-08-21] MEDS ORDERED: INSULIN GLARGINE 100 UNITS/ML VIAL SQ SCH (21:00)
== END 2020-08-21 17:15 | disposition home or self-care (01) | DRG 638 ==
LOC: ER 18:03 → ERHOLD 19:09 → IMCU 23:01 → MED/SURG3 08-20 01:47
PROVIDERS: ADMIT Internal Medicine; ATTEND Internal Medicine
DX: E11.10 Type 2 diabetes mellitus with ketoacidosis without coma (principal); N17.9 Acute kidney failure, unspecified; I50.32 Chronic diastolic (congestive) heart failure; I11.0 Hypertensive heart disease with heart failure; E87.5 Hyperkalemia; N28.9 Disorder of kidney and ureter, unspecified; Z91.19 Patient's noncompliance with other medical treatment and regimen; Z95.2 Presence of prosthetic heart valve; E66.9 Obesity, unspecified; Z68.36 Body mass index [BMI] 36.0-36.9, adult; K73.9 Chronic hepatitis, unspecified; Z83.3 Family history of diabetes mellitus; Z82.49 Family history of ischemic heart disease and other diseases of the circulatory system; F17.210 Nicotine dependence, cigarettes, uncomplicated; Z20.822 Contact with and (suspected) exposure to COVID-19; Z79.4 Long term (current) use of insulin
CPT/HCPCS: 36415; 36600; 71045; 80048; 80053; 81001; 82550; 82553; 82805; 82948; 83036; 83735; 83880; 84439; 84443; 84484; 85025; 93005; 93306; 99284; J0610; J1815; J1817; J1940; J3480; J7030; J7050; U0002